=== PATIENT | male | born 1970 | race Caucasian/White ===

== ENCOUNTER 2017-05-05 20:00 | Emergency (ER) | payer OTHER ==
[~2017-05-05] VITALS: Ht 177.8 cm; Wt 125.5 kg
[~2017-05-05 20:00] MED LIST: INDOMETHACIN25 MG PO; NO HOME MEDICATIONS
[2017-05-05 20:04] VITALS: BP 144/92; TEMP 99.5
[2017-05-05] MEDS ORDERED: PRINIVIL20 MG PO (20:07)
[2017-05-05] MEDS ORDERED: TRICOR 48MG48 MG PO (20:07)
[2017-05-05] MEDS ORDERED: ZYLOPRIM 300MG300 MG PO (20:08)
[2017-05-05 20:55] LABS: BASO % 0.3 % (0.0-2.0); EOS # 0.1 (0.0-0.7); EOS % 1.3 % (0-4.0); GRAN # 7.9 (1.4-6.5); GRAN % 75.7 % (42.2-75.2); HEMATOCRIT 46.7 % (42.0-52.0); HEMOGLOBIN 16.2 g/dl (13.5-18.0); LYMPH # 1.5 (1.2-3.4); LYMPH % 14.4 % (20.0-51.0); MEAN CELL VOLUME 97 fl (80.0-100.0); MEAN CORPUSCULAR HEMOGLOBIN 34 pg (27.0-31.0); MEAN CORPUSCULAR HGB CONC 35 g/dl (33.0-37.0); MEAN PLATELET VOLUME 9.4 fl (7.4-10.4); MONO # 0.8 (0.1-0.6); PLATELET COUNT 238 K/mm3 (130-400); RED BLOOD COUNT 4.84 M/mm3 (4.20-5.60); REDCELL DISTRIBUTION WIDTH-CV 12.8 % (11.5-14.5)
[2017-05-05 21:05] LABS: BILIRUBIN,TOTAL 0.7 mg/dL (0.0-1.0); CALCIUM 9.5 mg/dL (8.4-10.2); CREATININE, serum 1.51 mg/dL (0.66-1.25); POTASSIUM 4.2 mmol/L (3.4-5.0); TOTAL PROTEIN 7.1 gm/dL (6.4-8.2)
[2017-05-05 21:16] LABS: URIC ACID 6.2 mg/dL (3.5-8.5)
[2017-05-05 21:50] LABS: ERYTHROCYTE SEDIMENTATION RATE 13 mm/hr (0-15)
[2017-05-05] MEDS ORDERED: MOBIC 7.5MG7.5 MG PO (22:34)
[2017-05-05] MEDS ORDERED: NORCO 325 MG-51 TAB PO (22:37)
[2017-05-05 22:54] VITALS: PULSE 95
== END 2017-05-05 22:55 | disposition home or self-care (01) ==
LOC: COL.ER 20:00
PROVIDERS: Nurse Practitioner Primary Care
DX: M25.561 Pain in right knee (principal); E78.5 Hyperlipidemia, unspecified; I10 Essential (primary) hypertension; M10.9 Gout, unspecified

== ENCOUNTER 2017-07-03 05:38 | Day surgery (SDC) | payer OTHER ==
[~2017-07-03] VITALS: Ht 180.3 cm; Wt 124.7 kg
[~2017-07-03 05:38] MED LIST changes: +MOBIC 7.5MG7.5 MG PO; +NORCO 325 MG-51 TAB PO; +PRINIVIL20 MG PO; +TRICOR 48MG48 MG PO; +ZYLOPRIM 300MG300 MG PO
[2017-07-03 05:56] VITALS: BP 161/86; PULSE 70; TEMP 97.3
[2017-07-03] MEDS ORDERED: NORCO 325 MG-7.1 TAB PO (06:18)
[2017-07-03 09:10] VITALS: BP 134/87; PULSE 74; TEMP 97.8
[2017-07-03 09:25] VITALS: BP 137/79; PULSE 73
[2017-07-03 09:40] VITALS: BP 128/68; PULSE 70
[2017-07-03] MEDS ORDERED: PHENERGAN 25 TA25 MG PO (09:41)
[2017-07-03] MEDS ORDERED: CEPHALEXIN500 M1 PO (09:41)
== END 2017-07-03 10:35 | disposition home or self-care (01) ==
LOC: SDCO 05:38
DX: S43.431A Superior glenoid labrum lesion of right shoulder, initial encounter (principal); M25.811 Other specified joint disorders, right shoulder; E78.00 Pure hypercholesterolemia, unspecified; M10.9 Gout, unspecified; F17.220 Nicotine dependence, chewing tobacco, uncomplicated; G47.33 Obstructive sleep apnea (adult) (pediatric); Z82.5 Family history of asthma and other chronic lower respiratory diseases; Z83.3 Family history of diabetes mellitus
CPT/HCPCS: C1713; J0171; J0360; J0690; J1100; J1170; J1885; J2250; J2405; J2704; J3010; J7120